=== PATIENT | female | born 2000 | race African-American/Black ===

== ENCOUNTER 2022-07-01 13:29 | Emergency (ER) | payer OTHER ==
[2022-07-01] MEDS ORDERED: Acetaminophen 500 MG TAB ONE (16:09)
[2022-07-01] MEDS ORDERED: Ketorolac Tromethamine 30 MG/ML VIAL ONE (16:09)
== END 2022-07-01 16:38 | disposition home or self-care (01) ==
LOC: ERS 13:29
DX: M54.6 Pain in thoracic spine (principal)
CPT/HCPCS: 71045; 93005; 96372; J1885